=== PATIENT | male | born 1995 | race Two or more races ===

== ENCOUNTER → 2024-11-30 | Outpatient (CLI) | payer BC, SELFPAY ==
[2024-12-07 06:33] LABS: Testosterone, Free,Dialysis 66.2 pg/mL (35.0-155.0); Testosterone, Total, Dialysis 370 ng/dL (250-1100)
== END | disposition home or self-care (01) ==
LOC: COPL 09:19
PROVIDERS: PCP Registered Nurse; Referring Provider Registered Nurse; Visit Provider Registered Nurse
DX: E29.1 Testicular hypofunction (principal)
CPT/HCPCS: 36415; 84402; 84403